=== PATIENT | male | born 1990 | race Caucasian/White ===

== ENCOUNTER 2022-06-28 12:37 | Emergency (ER) | payer BC | END 2022-06-28 13:16 | disposition left against medical advice (07) | LOC: MW.ED 12:37 | DX: Z53.21 Procedure and treatment not carried out due to patient leaving prior to being seen by health care provider (principal) ==

== ENCOUNTER 2022-06-28 14:29 | Emergency (ER) | payer BC ==
[2022-06-28] MEDS ORDERED: Diphtheria,Pertussis(Acell),Tetanus Vaccine 0.5 ML Syringe IM ONE (14:48)
[2022-06-28] MEDS ORDERED: Ibuprofen 400 MG Tab PO ONE (14:48)
[2022-06-28] MEDS ORDERED: Acetaminophen 325 MG Tab PO ONE (14:48)
[2022-06-28] MEDS ORDERED: Lidocaine 1% 5 ML VIAL INJECT ONE (14:49)
[2022-06-28] MEDS ORDERED: Amoxicillin/Clavulanate K 875-125 MG Tab PO ONE (14:49)
[2022-06-28] MEDS ORDERED: Lidocaine/Epineph/Tetracaine 3 ML Syringe TOP ONE (14:49)
[2022-06-28] MEDS ORDERED: cefTRIAXone 1 GM Vial IM ONE (15:57)
== END 2022-06-28 16:47 | disposition home or self-care (01) ==
LOC: MW.ED 14:29
DX: S61.012A Laceration without foreign body of left thumb without damage to nail, initial encounter (principal); Z23 Encounter for immunization; W26.0XXA Contact with knife, initial encounter
CPT/HCPCS: 12002; 90471; 90715; 96372; 99282; A9270; J0696

== ENCOUNTER 2022-10-25 17:22 | Emergency (ER) | payer BC | END 2022-10-25 18:32 | disposition home or self-care (01) | LOC: MW.ED 17:22 | DX: S61.001A Unspecified open wound of right thumb without damage to nail, initial encounter (principal); W26.8XXA Contact with other sharp object(s), not elsewhere classified, initial encounter; Y92.89 Other specified places as the place of occurrence of the external cause; Y99.0 Civilian activity done for income or pay | CPT/HCPCS: 99283 ==